=== PATIENT | female | born 1960 | race Caucasian/White ===

== ENCOUNTER → 2017-04-01 | Outpatient (CLI) | payer BC ==
--- NOTE | ~2017-04-01 | MR18 ---
[facility] of [facility] & [facility] RADIOLOGY TEXT RESULTS PATIENT: JUAN DUQUE LOCATION: [facility] : 64 UNIT #: [id number] AGE: [address]: Vel Melgar MD SEX: F ORDER DR: [id number] [place] [id number] O MR#: [id number] Acc #: [id number] NAME: JUAN DUQUE : 1960 SEX: F STUDY DATE/TIME: 04/01/2017 8:44 UNIT: [facility] ROOM: STUDY DESCRIPTION: MR Brain Wo Contrast Attending Physician: Vel Melgar M.D. Referring Physician: Vel Melgar M.D. Ordering Physician: Vel Melgar M.D. Primary Care Physician: Vel Melgar M.D. MRI CENTER REPORT This report is preliminary unless electronic signature is present. EXAM MRI of the brain without contrast HISTORY Dizziness, fatigue and headache; symptoms increasing and headaches are right-sided. Patient is unsteady on feet. Symptoms for a month. COMMENT MRI of the brain was performed without contrast using routine 1.5T imaging technique. COMPARISON 05/20/2015 FINDINGS No recent ischemic insult is suspected on the diffusion weighted series. The midline structures are unremarkable. Redemonstrated is moderate nonspecific white matter disease with too numerous to count areas of signal abnormality within the subcortical deep and periventricular white matter supratentorial brain. In general lesions are 5 mm or less in dimension. On comparison to previous they are not significantly changed. There is no extraaxial fluid collection. There is mild prominence perivascular spaces in general. Major intracranial flow voids are maintained. The mastoid air cells are clear. The paranasal sinuses show mild mucosal thickening but no air-fluid level. There is no MRI evidence for intracranial hemorrhage. There is no intracranial mass effect. IMPRESSION 1. Redemonstration of moderate nonspecific white matter disease. Please correlate for history of severe longstanding migraine or risk factors for small vessel ischemic disease. Please correlate as well for any clinical concern for less likely a consideration such as STS. [facility] A Service of [facility] & [facility] RADIOLOGY TEXT RESULTS PATIENT: JUAN DUQUE LOCATION: [facility] : 64 UNIT #: [id number] AGE: [address]: Vel Melgar MD SEX: F ORDER DR: demyelinating disease, vasculitis or Lyme's disease. 2. No evidence for a recent ischemic insult. 3. No intracranial mass effect. Dictated by... Eva Galvan M.D. THIS IS AN ELECTRONICALLY VERIFIED REPORT Eva Galvan M.D. at 04/05/2017 7:29 AM SAC/to TD: 04/04/2017 23:11 JOB #: [id number] MRI CENTER REPORT Page 1 of 1
== END | disposition home or self-care (01) ==
LOC: SMRI 08:01
DX: G51.0 Bell's palsy (principal); R42 Dizziness and giddiness; R53.83 Other fatigue; R51 Headache
CPT/HCPCS: 70551